=== PATIENT | female | born 1980 | race Caucasian/White ===

== ENCOUNTER 2018-11-22 08:13 | Emergency (ER) | payer MEDICAID ==
[~2018-11-22] VITALS: Ht 170.2 cm; Wt 98.0 kg
[~2018-11-22 08:13] MED LIST: CALC-649 PO; FERR27TA PO; PREN1TAB49 PO
[2018-11-22 08:15] VITALS: BP 137/76; PULSE 91; RESP 18; Ht 170.2 cm; Wt 98.0 kg
--- NOTE | 2018-11-22 09:08 | ERD ---
ER Documentation Chief Complaint Chief Complaint cough x 2wks, hx:asthma, 9wks HPI 38-year-old female presents complaint of cough as well as right ear pain for the past 2 weeks. States that she has noticed some watery discharge coming from the right ear. Describes the cough as productive with clear phlegm coming out. In addition she states that she is been having some shortness of breath. Has a history of asthma. Denies any current wheezing, hemoptysis, leg pain, chest pain. Denies abdominal pain, vaginal bleeding, vomiting, back pain, diarrhea. Denies past medical history. Denies allergies. Denies medications. Denies surgeries. Denies alcohol, tobacco, drug use. Up to date on vaccines. ROS All systems reviewed and are negative except as per history of present illness. Medications Home Meds Reported Medications Calcium Carbonate (Calcium) 1 Tab Tablet, 1 TAB PO DAILY 12/01/12 Ferrous Sulfate (Iron) 1 Tab Tablet, 1 TAB PO DAILY 12/01/12 Ferrous Sulfate (Iron) 1 Tab Tablet, 1 TAB PO DAILY 12/01/12 Vits W-Ca,Fe,Fa(<1MG) () 1 Tab Tablet, 1 TAB PO DAILY 12/01/12 Allergies Allergies: Coded Allergies: No Known Allergy (Verified Allergy, Unknown, 08/19/09) PMhx/Soc History of Surgery: Yes () Hx Alcohol Use: No Hx Tobacco Use: No FmHx Family History: No diabetes, No coronary disease, No other Physical Exam Vitals Vital Signs Date Temp Pulse Resp B/P (MAP) Pulse Ox O2 O2 Flow FiO2 Time Delivery Rate 11/22/18 98.6 91 18 137/76 100 08:15 (96) Physical Exam Const: No acute distress Head: Atraumatic Eyes: Normal Conjunctiva ENT: Normal External Ears, Nose and Mouth. Right ear canal has white discharge as well as edema. Neck: Full range of motion. No meningismus. Resp: Clear to auscultation bilaterally Cardio: Regular rate and rhythm, no murmurs Abd: Soft, non tender, non distended. Normal bowel sounds Skin: No petechiae or rashes Back: No midline or flank tenderness Ext: No cyanosis, or edema Neur: Awake and alert Psych: Normal Mood and Affect Results 24 hrs Laboratory Tests Test 11/22/18 09:12 11/22/18 09:18 Troponin I < 0.012 ng/ml POC Beta HCG, Qualitative POSITIVE Procedures/MDM DIAGNOSTIC IMAGING REPORT Patient: KAVON CARRERA : 1980 Age: 38 Sex: F MR #: [id number] DOS: 11/22/18 0858 Ordering MD: YELENA COLLADO Location: [facility] Room/Bed: PROCEDURE: XR Chest. CLINICAL INDICATION: Dyspnea, cough TECHNIQUE: Single portable view of the chest was obtained COMPARISON: CR CHEST 09/02/2012 FINDINGS: The heart and mediastinum are within normal limits. There are mild bibasilar atelectatic changes. The lungs are otherwise clear. There is no pleural effusion or pneumothorax. RPTAT: AA IMPRESSION: Mild bibasilar atelectatic changes. .Froy Rebolledo MD, MD Date Time Electronically viewed and signed by .Froy Rebolledo MD, MD on 11/22/2018 09:51 .S/ CC: YELENA COLLADO [id number] EKG: Rate/Rhythm: Normal Sinus Rhythm QRS, ST, T-waves: No changes consistent w/ acute ischemia Impression: No evidence of ischemia or arrhythmia ER course: Chest x-ray, EKG, troponin. All within normal limits. 38-year-old female presents complaint of cough as well as right ear pain for the past 2 weeks. States that she has noticed some watery discharge coming from the right ear. Describes the cough as productive with clear phlegm coming out. In addition she states that she is been having some shortness of breath. Has a history of asthma. Denies any current wheezing, hemoptysis, leg pain, chest pain. Denies past medical history. Denies allergies. Denies medications. Denies surgeries. Denies alcohol, tobacco, drug use. Up to date on vaccines. Patient's presentation is consistent with otitis externa. Possibly viral versus bacterial. Decision was made to treat for both. In addition chest x-ray showed possible pulmonary infection so she will be treated for a pneumonia as well with azithromycin. I have low suspicition for acute coronary syndrome, pulmonary embolism, aortic dissection, AAA, pneumothorax, esophageal rupture, pericarditis, myocarditis, or based on EKG, imaging, labs, patient history and exam. Patient does not meet either of the [place] or PERC criteria for d-dimer. In addition I have low suspicion for malignant otitis externa, TM rupture, mastoiditis, or other emergent condition. Patient discharged with strict ER p recautions. Patient advised to follow up with PMD. All questions answered at discharge. Departure Diagnosis: Primary Impression: Otitis externa Otitis externa type: unspecified type Chronicity: acute Laterality: right Qualified Codes: H60.501 - Unspecified acute noninfective otitis externa, right ear Additional Impression: URI (upper respiratory infection) URI type: unspecified viral URI Qualified Codes: J06.9 - Acute upper respiratory infection, unspecified Condition: YELENA Conteh Nov 22, 2018 09:08
[2018-11-22] MEDS ORDERED: NPH10OT RIGHT EAR (11:17)
[2018-11-22] MEDS ORDERED: AZIT250T PO (11:18)
== END 2018-11-22 11:55 | disposition home or self-care (01) ==
LOC: FTE 08:13
DX: O99.89 Other specified diseases and conditions complicating pregnancy, childbirth and the puerperium (principal); H60.501 Unspecified acute noninfective otitis externa, right ear; O99.511 Diseases of the respiratory system complicating pregnancy, first trimester; J06.9 Acute upper respiratory infection, unspecified; J45.901 Unspecified asthma with (acute) exacerbation; R06.02 Shortness of breath; Z3A.09 9 weeks gestation of pregnancy
CPT/HCPCS: 71045; 81025; 84484; 93005; Z7502